=== PATIENT | female | born 1960 | race Two or more races ===

== ENCOUNTER 2020-07-09 11:56 | Outpatient (CLI) | payer OTHER ==
[~2020-07-09 11:56] MED LIST: PAXIL30 MG
== END 2020-07-09 12:10 | disposition home or self-care (01) ==
LOC: LAB 11:56
PROVIDERS: ATTEND General Practice
DX: E03.8 Other specified hypothyroidism (principal); B34.8 Other viral infections of unspecified site; J06.9 Acute upper respiratory infection, unspecified; E11.9 Type 2 diabetes mellitus without complications; E55.9 Vitamin D deficiency, unspecified; I10 Essential (primary) hypertension; R19.5 Other fecal abnormalities

== ENCOUNTER 2020-07-27 14:02 | Outpatient (CLI) | payer OTHER | END 2020-07-27 14:15 | disposition home or self-care (01) | LOC: MAMO-SONO 14:02 | PROVIDERS: ATTEND General Practice | DX: N64.59 Other signs and symptoms in breast (principal); Z12.31 Encounter for screening mammogram for malignant neoplasm of breast ==

== ENCOUNTER 2022-12-11 09:19 | Emergency (ER) | payer OTHER ==
[~2022-12-11] VITALS: Ht 172.7 cm; Wt 79.4 kg
[2022-12-11] MEDS ORDERED: KETOROLAC TROME10 MG PO (09:46)
[2022-12-11] MEDS ORDERED: TAMSULOSIN HCL0.4 MG PO (09:46)
[2022-12-11] MEDS ORDERED: LEVOFLOXACIN500 MG PO (09:46)
[2022-12-11] MEDS ORDERED: PROZAC40 MG PO (09:47)
[2022-12-11] MEDS ORDERED: LAMICTAL25 M1 PO (09:48)
[2022-12-11] MEDS ORDERED: BACTRIM DS TAB1 EACH PO (12:06)
[2022-12-11] MEDS ORDERED: ADVIL DUAL ACT1 EACH PO (12:10)
== END 2022-12-11 12:21 | disposition home or self-care (01) ==
LOC: ER 09:19
DX: N39.0 Urinary tract infection, site not specified (principal)

== ENCOUNTER 2023-04-07 08:15 | Outpatient (CLI) | payer OTHER ==
[~2023-04-07 08:15] MED LIST changes: +ADVIL DUAL ACT1 EACH PO; +BACTRIM DS TAB1 EACH PO; +KETOROLAC TROME10 MG PO; +LAMICTAL25 M1 PO; +LEVOFLOXACIN500 MG PO; +PROZAC40 MG PO; +TAMSULOSIN HCL0.4 MG PO
== END 2023-04-07 08:35 | disposition home or self-care (01) ==
LOC: RAD 08:15
DX: N20.0 Calculus of kidney (principal)

== ENCOUNTER 2023-07-01 11:06 | Outpatient (CLI) | payer OTHER | END 2023-07-01 11:08 | disposition home or self-care (01) | LOC: RAD 11:06 | DX: N20.0 Calculus of kidney (principal) ==

== ENCOUNTER 2023-09-01 11:18 | Outpatient (CLI) | payer OTHER ==
[2023-09-01 12:15] LABS: HEMATOCRIT 36.2 % (36.0-45.00); HEMOGLOBIN 12.6 g/dL (12.0-15.00); MEAN CELL VOLUME 82.5 fL (80.00-100.00); MEAN CORPUSCULAR HEMOGLOBIN 28.6 pg (27.00-32.0); MEAN CORPUSCULAR HGB CONC 34.6 g/dl (32.0-36.0); PLATELET COUNT 243 K/uL (150-450); RED BLOOD COUNT 4.39 M/uL (4.00-6.00); RED CELL DISTRIBUTION WIDTH 13.1 % (11.5-14.5)
[2023-09-01 12:16] LABS: PH,URINE 6.5 (5.0-8.0); URINE APPEARANCE Clear; URINE BILIRRUBIN Negative (NEGATIVE); URINE BLOOD Trace; URINE COLOR Yellow; URINE GLUCOSE Negative (NEGATIVE); URINE LEUKOCYTE Large; URINE NITRATE Negative; URINE PROTEIN Negative (NEGATIVE); URINE UROBILINOGEN 0.2 E.U./dl
[2023-09-01 12:20] LABS: URINE BACTERIA 491.3 uL (0.0-1933); URINE EPITHELIAL CELLS 10.9 uL (0.0-38.8); URINE RBC 7.7 uL (0.0-20.8); URINE WBC 43.9 uL (0.0-23.2)
[2023-09-01 14:00] LABS: ALBUMIN 3.8 gm/dL (3.4-5.0); BILIRUBIN TOTAL 0.87 mg/dL (0.3-1.2); BILIRUBIN,CONJUGATED 0.16 mg/dL (0.0-0.2); BILIRUBIN,UNCONJUGATED 0.71 mg/dL (0.0-0.6); CALCIUM 9.2 mg/dL (8.5-10.1); CREATININE SERUM 0.73 mg/dL (0.55-1.02); GFR 80.78; POTASSIUM 3.93 mEq/L (3.5-5.1); TOTAL PROTEIN 7.5 gm/dL (6.4-8.2)
[2023-09-01 14:22] LABS: CHOL HDL RATIO 4.5 (0-5.0); TSH 0.134 uIU/mL (0.358-3.74)
[2023-09-01 14:31] LABS: ERYTHROCYTE SEDIMENTATION RATE 13 mm/hr
== END 2023-09-01 11:19 | disposition home or self-care (01) ==
LOC: LAB 11:18
PROVIDERS: ATTEND Internal Medicine
DX: I10 Essential (primary) hypertension (principal); E78.5 Hyperlipidemia, unspecified; E78.2 Mixed hyperlipidemia; D64.9 Anemia, unspecified; E03.8 Other specified hypothyroidism; M06.4 Inflammatory polyarthropathy; Z85.038 Personal history of other malignant neoplasm of large intestine; Z12.11 Encounter for screening for malignant neoplasm of colon; E11.9 Type 2 diabetes mellitus without complications; E55.9 Vitamin D deficiency, unspecified; K76.9 Liver disease, unspecified; D68.9 Coagulation defect, unspecified; M10.9 Gout, unspecified; N39.9 Disorder of urinary system, unspecified; N20.0 Calculus of kidney; R19.5 Other fecal abnormalities

== ENCOUNTER → 2023-09-02 10:24 | Outpatient (CLI) | payer OTHER ==
[2023-09-02 12:49] LABS: ob NEGATIVE (NEGATIVE)
== END | disposition home or self-care (01) ==
LOC: LAB 10:24
PROVIDERS: ATTEND Internal Medicine
DX: E78.5 Hyperlipidemia, unspecified (principal); I10 Essential (primary) hypertension; E78.2 Mixed hyperlipidemia; D64.9 Anemia, unspecified; E03.8 Other specified hypothyroidism; M06.4 Inflammatory polyarthropathy; Z85.038 Personal history of other malignant neoplasm of large intestine; Z12.11 Encounter for screening for malignant neoplasm of colon; E11.9 Type 2 diabetes mellitus without complications; E55.9 Vitamin D deficiency, unspecified; K76.9 Liver disease, unspecified; D68.9 Coagulation defect, unspecified; M10.9 Gout, unspecified; N39.9 Disorder of urinary system, unspecified; N20.0 Calculus of kidney; R19.5 Other fecal abnormalities

== ENCOUNTER 2023-09-14 11:27 | Outpatient (CLI) | payer OTHER | END 2023-09-14 11:33 | disposition home or self-care (01) | LOC: SONOGRAMA 11:27 | PROVIDERS: ATTEND Internal Medicine | DX: E03.9 Hypothyroidism, unspecified (principal) ==

== ENCOUNTER 2024-07-27 10:39 | Outpatient (CLI) | payer OTHER ==
[2024-07-27 11:26] LABS: URINE APPEARANCE Clear; URINE BILIRRUBIN Negative (NEGATIVE); URINE BLOOD Negative; URINE COLOR Yellow; URINE GLUCOSE Negative (NEGATIVE); URINE KETONE Negative (NEGATIVE); URINE LEUKOCYTE Moderate; URINE NITRATE Negative; URINE PROTEIN Negative (NEGATIVE)
[2024-07-27 11:29] LABS: HEMATOCRIT 34.7 % (36.0-45.00); HEMOGLOBIN 12.6 g/dL (12.0-15.00); MEAN CELL VOLUME 80.8 fL (80.00-100.00); MEAN CORPUSCULAR HEMOGLOBIN 29.2 pg (27.00-32.0); MEAN CORPUSCULAR HGB CONC 36.2 g/dl (32.0-36.0); PLATELET COUNT 242 K/uL (150-450); RED CELL DISTRIBUTION WIDTH 13.4 % (11.5-14.5)
[2024-07-27 11:30] LABS: URINE EPITHELIAL CELLS 5.5 uL (0.0-38.8); URINE RBC 8.2 uL (0.0-20.8); URINE WBC 36.2 uL (0.0-23.2)
[2024-07-27 11:35] LABS: URINE CAST 0.14 uL (0.0-1.40)
[2024-07-27 12:40] LABS: ALBUMIN 3.8 gm/dL (3.4-5.0); BILIRUBIN TOTAL 0.84 mg/dL (0.3-1.2); CALCIUM 9.2 mg/dL (8.5-10.1); CREATININE SERUM 0.69 mg/dL (0.55-1.02); GFR 85.93; GLOBULINA 3.6 G/DL (2.4-3.5); POTASSIUM 4.11 mEq/L (3.5-5.1); T4 FREE 1.06 NG/ML (0.76-1.46); TOTAL PROTEIN 7.4 gm/dL (6.4-8.2)
[2024-07-27 12:47] LABS: CHOL HDL RATIO 4.6 (0-5.0)
[2024-07-27 12:48] LABS: TSH 0.328 uIU/mL (0.358-3.74)
[2024-07-29 12:15] LABS: T3 TOTAL 1.13 ng/ml (0.846-2.02); VITAMIN D3 25 HYDROXY 33.36 ng/ml (30-120)
[2024-07-30 08:04] LABS: hav igm Negative (Negative); hcv Non Reactive (Non Reactive); hep b c Negative (Negative); hep b s ag Negative (Negative)
== END 2024-07-27 23:00 | disposition home or self-care (01) ==
LOC: LAB 10:39
DX: D64.9 Anemia, unspecified (principal); N39.0 Urinary tract infection, site not specified; E11.9 Type 2 diabetes mellitus without complications; E78.00 Pure hypercholesterolemia, unspecified; Z11.59 Encounter for screening for other viral diseases; E03.9 Hypothyroidism, unspecified; E55.9 Vitamin D deficiency, unspecified; R19.05 Periumbilic swelling, mass or lump